=== PATIENT | male | born 1995 | race Asian ===

== ENCOUNTER 2016-09-08 11:41 | Emergency (ER) | payer OTHER ==
[~2016-09-08] VITALS: Ht 175.3 cm; Wt 64.5 kg
[2016-09-08 11:44] VITALS: TEMP 36.5; Ht 175.3 cm; Wt 64.5 kg
[2016-09-08] MEDS ORDERED: BUPIVACAINE 0.5 % 5 MG/1 ML MPF 30ML VIAL INFIL STA (12:01)
[2016-09-08] MEDS ORDERED: XYLOCAINE 1%/SOD BICARB 20 ML VIAL INFIL STA (12:01)
--- NOTE | 2016-09-08 12:08 | EMERGENCY ROOM VISIT NOTE ---
ED Visit Note First contact with patient: 11:46 Chief Complaint: "Laceration-stitches needed". History of Present Illness: This patient is a 21-year-old male who presents to the Emergency Department via private vehicle for evaluation of their right index finger laceration. 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 They report a moderate amount of bleeding initially. They admit to numbness in the digit, deny tingling. They report no decreased range of motion of the affected digit. Patient rates his current discomfort as a 09/1710. Patient's Tetanus status is believed to be currently up-to-date. Medications: None Allergies: NKDA PMH: No pertinent PMHx SHx: Pt. volunteers at [facility] ROS: All pertinent positive and negative review of systems are appropriately documented in the History of Present Illness. Physical Exam: VITAL SIGNS - Vital signs and nursing notes were reviewed. GENERAL -21-year-old male appearing his stated age who is in no acute distress. Communicates well with provider and answers questions appropriately. SKIN - There is a 1.5 cm long laceration noted on the medial aspect of the distal right second digit. The edges gape apart with traction. No foreign bodies appreciated. Upon further examination there are no deep structures including vessel, tendon, or bony structures appreciated. There is no active bleeding noted. There is purplish discoloration of the right distal fingertip. He is vascularly intact. MUSCULOSKELETAL - Laceration as described above. +5/5 strength appreciated of the affected digit. Full range of motion of the affected digit. NEUROLOGIC - Spinothalamic tract was found to be intact with ability to discriminate sharp versus dull sensation. No sensory defects of the dorsal column were appreciated utilizing light touch for evaluation. VASCULAR - Capillary refill was brisk. IMAGING: RIGHT SECOND FINGER RADIOGRAPHS CLINICAL HISTORY: Right second finger injury. COMPARISON: None FINDINGS: There is a minimally displaced fracture of the distal tuft of the distal phalanx of the right second finger. There is also a suspected nondisplaced transverse fracture within the base of the distal phalanx of the right second finger. Soft tissue swelling is present. There is no radiopaque foreign body. IMPRESSION: Minimally displaced acute fracture of the distal tuft of the distal phalanx of the right second finger and a suspected nondisplaced transverse fracture of the base of the distal phalanx of the right second finger. Electronically signed by: Jalen Torres M.D. 09/08/2016 12:35 PM Dictated Date/Time: 09/08/2016 12:34 PM ED Course: Patient was seen and evaluated by myself. Risks and benefits of performing primary wound closure versus no repair were discussed with the patient who verbalizes understanding. Verbal consent was obtained prior to performing the procedure. Radiograph was obtained of the affected digit. There are 2 fractures, one is believed to be no fracture. The bone is not exposed. 6 cc of 50/50 1% buffered lidocaine and 0.5% bupivacaine was used to perform a digital block of the right second digit. The wound was cleansed and prepped in the typical sterile fashion utilizing normal saline and Betadine. The wound was sterilely draped. Once proper anesthetization was established, the wound was further examined and demonstrated edema of the distal tip without bony abnormalities upon examination. The wound was copiously irrigated with normal saline and Betadine. The wound was closed using 3 simple, 5-0 nylon sutures with the wound edges being well approximated. The case was discussed with my attending and subsequently Dr. Patel, the on-call orthopedic surgeon at 1:20 PM. This call was had secondary to open fracture. He recommended Xeroform, a small 1 inch conform dressing, Augmentin 875 twice a day, daily dressing changes , 1 g of Rocephin IM as well as to have the patient call his office on Saturday for him to be seen on Saturday. Patient tolerated the procedure well. No complications were met. The wound was cleansed and dressed with a Xeroform dressing, a dry bulky dressing and a cage splint. Patient educated on worrisome symptoms for return visit to the Emergency Department. Patient discharged to home in good condition. In the evaluation and treatment of this patient, the following differential diagnoses were considered: Finger Fracture, Finger Dislocation, Finger Sprain, Finger Contusion, Jersey Finger, or Mallet Finger. Current/Historical Medications Scheduled Amoxicillin & Pot Clavulanate (Augmentin 875-125 mg), 1 TAB PO BID Allergies Coded Allergies: No Known Allergies (Unverified , 09/08/16) Vital Signs Date Time Temp Pulse Resp B/P Pulse Ox O2 Delivery O2 Flow Rate FiO2 09/08/16 14:50 74 16 114/74 99 09/08/16 13:45 72 16 115/76 99 Room Air 09/08/16 11:44 36.5 72 20 123/80 97 Room Air Medications Administered Medications (Trade) Dose Ordered Sig/Nasir Route Start Time Stop Time Status Last Admin Dose Admin Ceftriaxone Sodium (Rocephin Inj) 1 gm NOW STAT IV 09/08/16 13:32 09/08/16 13:33 DC 09/08/16 13:32 1 GM Departure Information Impression Primary Impression: Laceration Additional Impression: Fracture, finger, open Dispostion Home / Self-Care Condition GOOD Prescriptions Amoxicillin & Pot Clavulanate (Augmentin 875-125 mg) 1 Tab Tab 1 TAB PO BID for 7 Days, #14 TAB Prov: Kyler Ochoa PA-C 09/08/16 Referrals No Doctor, Assigned (PCP) Maximiliano Patel D.O. Patient Instructions My [facility] Additional Instructions Discharge Instructions: You have received 3 sutures on your right index finger. These sutures are NOT dissolvable and WILL need to be removed by a health care provider in 12 days. You can return to the Emergency Department or contact your Primary Care Provider to have the sutures removed. Please wear the splint for comfort until the sutures are removed and to help the bones heal. Please change the dressing once daily as we discussed. You have been prescribed Augmentin. This is one tablet twice daily for 7 days to help prevent infection. Please call [facility] first thing on Saturday to ensure that her tetanus is up-to-date. If it is not please request a tetanus update or return here. I spoke with Dr. Patel, the orthopedic surgeon who would like to see you in his office on Saturday. He asks that you call his office first thing Saturday to schedule a follow-up, (PHONE NUMBER LISTED ABOVE) and please tell the operator receptionist that Dr. Patel would like to see you in his clinic on Saturday. Proper wound care is essential for adequate wound healing and infection prevention. You can shower and clean the wound with soap and water. Do not scour over the wound, pat dry with a towel. Do not submerse the wound (i.e. bathe or dish wash) until the sutures have been removed. You can use an antibiotic ointment with a dressing over the wound for the next 3-4 days. After this time you may leave the wound dry and open to the air. If crust develops over the wound you can use a Q-tip to apply a 1:1 peroxide:water solution to clean the wound. Look for signs of infection of the wound including: increased pain, swelling, foul discharge, streaking, or increased temperature. If any of these are noticed you should return to the Emergency Department for further assessment and treatment. As with any laceration you may have received nerve damage to the surrounding tissues. This damage may or may not be permanent. You should keep the area covered with sunscreen for the first 6 months to 1 year when at risk for exposure to help minimize scarring. You can also use scar reducing creams or Vitamin E oil to help minimize scarring. For pain control, you can use the following [id number] medicines (if >12 yo): - Regular strength (325mg/tab) Tylenol (acetaminophen) 2 tabs every 4-6 hours as needed. Do not exceed 12 tablets in a 24 hour period. Avoid taking more than 4 grams (4000 mg) of Tylenol per day. This includes any other sources of acetaminophen you may take on a regular basis. - Regular strength (200 mg/tab) Advil (ibuprofen) 1-2 tabs every 4-6 hours as needed. Do not exceed a dose of 3200 mg per day. Return to the emergency department if your symptoms worsen despite treatment course outlined above. Problem Qualifiers
--- NOTE | 2016-09-08 12:36 | DIAGNOSTIC IMAGING REPORT ---
RIGHT SECOND FINGER RADIOGRAPHS CLINICAL HISTORY: Right second finger injury. COMPARISON: None FINDINGS: There is a minimally displaced fracture of the distal tuft of the distal phalanx of the right second finger. There is also a suspected nondisplaced transverse fracture within the base of the distal phalanx of the right second finger. Soft tissue swelling is present. There is no radiopaque foreign body. IMPRESSION: Minimally displaced acute fracture of the distal tuft of the distal phalanx of the right second finger and a suspected nondisplaced transverse fracture of the base of the distal phalanx of the right second finger. Electronically signed by: Jalen Torres M.D. 09/08/2016 12:35 PM Dictated Date/Time: 09/08/2016 12:34 PM
[2016-09-08] MEDS ORDERED: CEFTRIAXONE SOD 350MG/ML 1 GM VIAL IM STA (13:21)
[2016-09-08] MEDS ORDERED: AMOX875T PO (13:25)
[2016-09-08] MEDS ORDERED: CEFTRIAXONE SOD INJ 1 GM ADDVIAL IV STA (13:32)
[2016-09-08 14:50] VITALS: BP 114/74; PULSE 74; O2SAT 99
== END 2016-09-08 14:51 | disposition home or self-care (01) ==
LOC: C.EDB 11:43 → C.EDD 14:51
DX: S61.210A Laceration without foreign body of right index finger without damage to nail, initial encounter (principal); S62.630B Displaced fracture of distal phalanx of right index finger, initial encounter for open fracture; W31.89XA Contact with other specified machinery, initial encounter

== ENCOUNTER 2016-09-19 12:31 | Emergency (ER) | payer OTHER ==
[~2016-09-19] VITALS: Ht 175.3 cm; Wt 64.3 kg
[2016-09-19 12:42] VITALS: TEMP 36.7; Ht 175.3 cm; Wt 64.3 kg
--- NOTE | 2016-09-19 13:36 | EMERGENCY ROOM VISIT NOTE ---
History Report prepared by Gisella: Marika Dhaliwal Under the Supervision of: Dr. Hal Gloria M.D. First contact with patient: 13:00 Chief Complaint: RASH Stated Complaint: HAVING SIDE EFFECTS FROM ANTIBIOTICS History of Present Illness The patient is a 21 year old male who presents to the Emergency Room with complaints of a worsening generalized rash that started 3 days ago. He states that the rash is somewhat pruritic, but it is the worst on his hands. The patient has not taken anything to try to relieve his symptoms. The patient states that he just finished a 7 day course of Augmentin 3 days ago also. He was started on Augmentin because of a finger laceration. He states that his stitches are supposed to come out today or tomorrow. The patient fractured his finger when he got the laceration, but he followed up with the hand specialist and they recommended just letting the fracture heal on its own because it was at the tip of his finger and it was small. The patient denies any new detergents , soaps or clothes. He also denies any new medication uses other than the Augmentin. He also denies any shortness of breath or wheezing. The patient is also experiencing a sore throat that started 3 days ago also and is worse at night. The patient adds that he has been experiencing some rectal bleeding after bowel movements. He states that it is only a small amount of bright red blood on the toilet paper after he has a bowel movement. He denies any history of hemorrhoids. The patient's tetanus shot is up to date. Source of History: patient Onset: 3 days ago Position: other (global) Quality: other (rash) Timing: worsening Associated Symptoms: + sorethroat Note: rectal bleeding Review of Systems All systems have been listed, reviewed, and are negative other than those previously mentioned. Please see Additional Medical History Sheet. Past Medical & Surgical Medical Problems: (1) Laceration of index finger Family History No pertinent family history Social History Smoking Status: Never Smoker Occupation Status: [employer] student Allergies Coded Allergies: Amoxicillin (Verified Allergy, Unknown, drug eruption/rash, 09/19/16) Drug eruption Uncoded Allergies: PENICILLIN (Allergy, Unknown, unknown, 09/19/16) Physical Exam Vital Signs Date Time Temp Pulse Resp B/P Pulse Ox O2 Delivery O2 Flow Rate FiO2 09/19/16 14:52 65 18 106/60 99 09/19/16 12:42 36.7 84 20 120/79 98 Room Air Physical Exam GENERAL: Patient awake, alert, oriented x 3. Patient follows commands. Patient does not appear toxic. Patient is adequately hydrated and well- nourished. SKIN: Macular, blanching, erythematous rash over much of patient's body, especially his hands. No pallor or cyanosis. HEENT: Normal head, pupils equal, reactive to light and accommodation. Ears normal. Oral cavity appears normal, slightly erythematous posterior oropharynx , no swelling of uvula, no tonsillar hypertrophy. Neck: Without adenopathy, no neck vein distention. LUNGS: Clear to auscultation. No wheezes, no rales, no rhonchi. HEART: No murmurs. No gallops. No rubs ABDOMEN: No masses, no rebound, no hepatomegaly or splenomegaly. RECTAL: No obvious bleeding or external hemorrhoids. EXTREMITIES: No signs of trauma. No pedal or pretibial edema. No calf or thigh tenderness. NEUROLOGIC: Cranial nerves II-XII within normal limits. No gross motor sensory function deficits. Medical Decision & Procedures Procedure Right index finger was soaked in some dilute peroxide to remove dried blood and debris around the incision site. 3 sutures were then gently removed without complication. Wound edges appear to be well approximated and there are no signs of infection. ED Course 1301: Past medical records reviewed. The patient was evaluated in room C11. A complete history and physical examination was performed. 1415: Upon reevaluation, the patient appeared to have improvement of his symptoms. I removed the patient's stitches at this time. Refer to the procedure note above for further details. I discussed today's findings with him. He verbalized agreement of the treatment plan. He was discharged home. Medical Decision Nurses notes reviewed. Medical history sheet reviewed. Differential diagnosis includes but is not limited to: allergic reaction, strep pharyngitis, viral pharyngitis, drug eruption, hemorrhoids, fissure. The patient's rash is most consistent with a drug eruption. Patient will be encouraged to avoid all future penicillins. I do not believe he requires any immediate intervention at this time. He was encouraged to use Benadryl as needed for itching. 3 stitches in his right index finger were removed without complication. Impression Primary Impression: Drug eruption Additional Impression: Laceration of index finger Scribe Attestation The scribe's documentation has been prepared under my direction and personally reviewed by me in its entirety. I confirm that the note above accurately reflects all work, treatment, procedures, and medical decision making performed by me. Departure Information Dispostion Home / Self-Care Referrals No Doctor, Assigned (PCP) Forms HOME CARE DOCUMENTATION FORM, IMPORTANT VISIT INFORMATION, WORK / SCHOOL INSTRUCTIONS Patient Instructions My [facility] Additional Instructions 50 mg of Benadryl every 6 hours as needed for itching. Do not drive or operate machinery while taking Benadryl. Clean your index finger with soap and water and then cover with bacitracin ointment daily. Do not take penicillin or penicillin-type antibiotics in the future. Problem Qualifiers Additional Impression: Laceration of index finger Encounter type: initial encounter Qualified Codes: S61.218A - Laceration without foreign body of other finger without damage to nail, initial encounter
[2016-09-19 14:52] VITALS: BP 106/60; PULSE 65; O2SAT 99
== END 2016-09-19 14:45 | disposition home or self-care (01) ==
LOC: C.EDB 12:32 → C.EDC 14:45
DX: L27.0 Generalized skin eruption due to drugs and medicaments taken internally (principal); Z48.02 Encounter for removal of sutures